=== PATIENT | male | born 1965 | race Caucasian/White ===

== ENCOUNTER 2018-06-21 13:03 | Day surgery (SDC) | payer OTHER, SELFPAY ==
[2018-06-13 10:48] VITALS: BMI 33.3
[2018-06-21] VITALS (9 sets, daily range): BP systolic 96–144; BP diastolic 44–98; PULSE 74–89; RESP 13–20; TEMP 36.1–36.8; O2SAT 92–98; BMI 32.3
[2018-06-21] MEDS: LACTATED RINGERS 1,000 ML 42 ML IV (14:25)
[2018-06-21] MEDS: fentaNYL 100 MCG/2 ML INJ 50 MCG IV ×2 (16:05→16:12)
[2018-06-21] MEDS: MIDAZOLAM 2 MG/2 ML VIAL IV (16:05)
[2018-06-21] MEDS: CEFAZOLIN 2 GM/100 ML FROZ.PIGGY IV (16:17)
--- NOTE | 2018-06-21 16:20 | PM.PREOP ---
Pre-operative Note Interval Note History & Physical reviewed/Exam performed by Physician: Yes Changes to H&P: No
--- NOTE | 2018-06-21 16:26 | SUR.PREOP ---
Block start time [1611] . Monitoring initiated and maintained throughout procedure. Oxygen and medications given per anesthesiologist instructions. Patient remained stable throughout procedure, no adverse reactions noted. Block end time [].1617
--- NOTE | 2018-06-21 16:54 | SUR.OPER ---
Beach chair with [employer] shoulder positioner. Lower body on padded OR bed. Head in foam padded head cradle, secured with straps. Non-operative arm secured <90 degrees abduction. Pillow under knees. Safety belt at thigh. Cloth tape over blanket over lower legs.
--- NOTE | 2018-06-21 17:01 | PM.PROC.1 ---
Procedures Date/Time Date of procedure: 06/21/18 Time of procedure: 16:11 Nerve Block Additional comments: Procedure: Brachial Plexus Block, Interscalene Indication: Post op pain relief following shoulder arthroscopy Side: Right Consent obtained and time out done. Routine monitors and NC O2 placed. Nerve stimulator and ultrasound used. Sterile chloroprep and drape. Landmarks ID'd and verified with ultrasound. Lidocaine 1% skin wheel with 25g needle. 100mm 22g blunt needle advanced; positive deltoid twitch to 0.6mAmp. Negative aspiration and negative test dose. 20ml total volume instilled: Ropivacaine 0.5% 15ml and Lidocaine 2% with epi 1:100K 5ml Patient tolerated procedure well with titrated IV sedation of midazolam 2mg and fentanyl 50mcg.
[2018-06-21] MEDS: BUPIVACAINE 0.5% W/ EPI (PF) VIAL 30 ML INJ (17:08)
[2018-06-21] MEDS: SODIUM CHLORIDE IRRIG SOLUTION 3,000 ML, EPINEPHrine 1 MG IRR (17:09)
--- NOTE | 2018-06-21 18:11 | PM.OP.1 ---
Operative Date/Time/Diagnoses Date of procedure: 06/21/18 Time of procedure: 16:39 Pre-op diagnosis: Right shoulder impingement as well as slap tear extending into the biceps anchor Post-op diagnosis: same Procedure & Clinicians Procedure: Arthroscopic extensive debridement of the glenohumeral joint as well as partial rotator cuff tear. subacromial decompression and distal clavicle excision. Mini open biceps tenodesis. Same procedure as scheduled: Yes Indications: Subacromial impingement and AC joint arthritis. Partial rotator cuff tear as well as tearing into the bicipital anchor. Surgeon: Jose Ashley [facility] Delivery Registered Nurse: Julienne You Anesthesia Type: General and Peripheral nerve block Operative Notes Findings: Partial rotator cuff tear articular sided that involved less than 50% of the tendon. slap tear extending into the biceps anchor causing instability. very minimal arthritic changes of the glenohumeral joint. rather large impingement lesion in the acromial arch. AC joint arthritis with inferior osteophytes. Significant bursitis in the subacromial and subdeltoid space. No sign of any significant bursal sided rotator cuff tearing. Closure Type: primary Specimen(s): none sent Prosthetic devices, grafts, tissues, transplants, or devices: Arthrex tenodesis screw Estimated Blood Loss (mL): 10 Blood products transfused: none Procedure in detail: On date of service, Patient was met in the holding area. The operative site was signed and witnessed by the OR staff. The surgeries once again discussed with the patient and any remaining questions they had were answered fully. Patient was taken back to the operating theater and placed on the operating table in a supine position. Great care was taken to ensure that all bony prominences were properly padded. Patient was then placed into the beach chair position. The head and neck were properly positioned and secured. A timeout was performed verifying patient's name, procedure, and the operative site. The upper extremity was then prepped and draped in the normal sterile fashion. Previously, the bony anatomy and portal sites were marked out as well as injected with Marcaine with epinephrine. An 11 blade was used to make an incision in the posterior aspect of the shoulder. The camera was placed, and a diagnostic shoulder scope was performed. Findings listed above. Next under direct visualization, a anterior portal was made. using a combination of the shaver and the vapor Wand and extensive debridement of the glenohumeral joint was performed. We debrided the slap tear as well as the partial tearing to the supraspinatus. The biceps tendon was tagged with an 18 gauge spinal needle and then was released from the bicipital anchor. Then the rest of the labrum was debrided back down to healthy tissue. Next the camera was placed into the subacromial space. A lateral portal was obtained under direct visualization. A combination of the shaver and vapor wand, a debridement of the inflamed tissue as well as inflamed bursa was performed. The lateral gutter was also cleaned out. This gave us good visualization of the bursal aspect of the rotator cuff as well as the acromial arch. There was an obvious impingement lesion in the acromial arch. The Next we turned our attention to the subacromial decompression. Next, a mechanical rasp was then used to do a subacromial decompression. This allowed us to convert the acromion to a type I acromial. This also allowed us to shave down the bony lesion in the acromial space. The rasp was placed into the lateral portal as well as the anterior portal in order to do a complete subacromial decompression. We next turned our attention to the distal clavicle. Using the shaver in the vapor wand we were able to clean out all the soft tissue around the distal clavicle as well as into the a.c. joint. This gave us good visualization of the arthritic changes to the distal clavicle as well as good of the a.c. joint allowing us to assess our distal clavicle excision. Of the inferior osteophytes coming off the distal clavicle. Using the mechanical rasp in the anterior portal, we were able to remove the inferior osteophytes as well as do a distal clavicle excision. The camera was then placed into the anterior portal which gave us a direct visualization of the a.c. joint allowing us to assess the distal clavicle excision. The shaver was then used once again to remove any remaining inflamed tissue in the subacromial and subdeltoid space. Shoulder was taken through range of motion of no sign of any additional impingement or any sign of any significant rotator cuff pathology. Next we turned our attention to the biceps tenodesis. Small incision was made in the axial crease. Ten blade was used to incise through skin and fascial tissue. Electrocautery was used to achieve hemostasis. blunt dissection was performed between the pectoralis and the deltoid getting us down to the bicipital groove. The tendon was found in the groove. It was released and the spinal needle anchor at it in place was removed allowing us to pull the tendon out of our incision. guidewire was used to enter into the bicipital groove followed by an 8 mm drill just to the proximal cortex. The tendon was whip stitched and 1 strand was passed through the anchor allowing us to push the tendon as well as the anchor in to the drill hole made into the bicipital groove. This provided a alvarado tenodesis of the biceps tendons. the 2 sutures were then tied for additional fixation. the wound was copiously irrigated closed in a layered fashion. patient was extubated and taken to the PACU in stable condition. Complications: none Condition: stable Disposition: PACU Plan for aftercare: Patient will follow our postoperative protocol for biceps tenodesis.
[2018-06-21] MEDS: INSULIN ASPART 100 UNIT/ML 10ML VIAL SUBCUT (18:37)
[2018-06-21] MEDS: OXYCODONE IR 5 MG TABLET PO (19:01)
[2018-06-21] MEDS: ONDANSETRON 4 MG/2 ML INJ IV (19:10)
[2018-06-21] MEDS: METOCLOPRAMIDE 10 MG/2 ML INJ IV (19:15)
== END 2018-06-21 20:05 | disposition home or self-care (01) ==
PROVIDERS: Visit Provider Orthopaedic Surgery
PROC: (CPT 29827; principal; 2018-06-21 15:00)
DX: M75.41 Impingement syndrome of right shoulder (principal); S43.431A Superior glenoid labrum lesion of right shoulder, initial encounter; M75.111 Incomplete rotator cuff tear or rupture of right shoulder, not specified as traumatic; E11.9 Type 2 diabetes mellitus without complications; J45.909 Unspecified asthma, uncomplicated; G89.18 Other acute postprocedural pain; M19.011 Primary osteoarthritis, right shoulder; M75.51 Bursitis of right shoulder
CPT/HCPCS: 23430; 29823; 29826; 29824; 64415; J0171; J0690; J2250; J2405; J2704; J2765; J2795; J3010